=== PATIENT | male | born 1990 | race African-American/Black ===

== ENCOUNTER 2017-05-09 16:40 | Emergency (ER) | payer MEDICAID, OTHER ==
[2017-05-09] MEDS ORDERED: AZITHROMYCIN 250 MG TABLET PO ONE (17:26)
[2017-05-09] MEDS ORDERED: NYSTATIN/DEXAMETH/DIPHEN SUSP 120 ML PO ONE (17:26)
--- NOTE | 2017-05-09 17:32 | ER Document Report ---
ED ENT - General Chief Complaint: Sore Throat Stated Complaint: SORE THROAT Time Seen by Provider: 05/09/17 17:14 Mode of Arrival: Ambulatory Information source: Patient Notes: Patient is a 27-year-old male who presents to the ER today for sore throat 5 days. Patient denies any cough, runny nose but admits to "feeling hot" and chills. He has not taken his temperature. He denies any sick contacts that he knows of. He states it hurts to eat and drink. He also complains of swelling to both sides of his neck starting 2 days ago. TRAVEL OUTSIDE OF THE [place] IN LAST 30 DAYS: No - Related Data Allergies/Adverse Reactions: Penicillins Allergy (Verified 05/09/17 16:43) Past Medical History - General Information source: Patient - Social History Smoking Status: Unknown if Ever Smoked Family History: Reviewed & Not Pertinent Renal/ Medical History: Denies: Hx Peritoneal Dialysis Review of Systems - Review of Systems Constitutional: See HPI EENT: See HPI Cardiovascular: No symptoms reported Respiratory: No symptoms reported Gastrointestinal: No symptoms reported Genitourinary: No symptoms reported Male Genitourinary: No symptoms reported Musculoskeletal: No symptoms reported Skin: No symptoms reported Hematologic/Lymphatic: No symptoms reported Neurological/Psychological: No symptoms reported Physical Exam - Vital signs Vitals: Temp Pulse Resp BP Pulse Ox 99.1 F 103 H 18 136/83 H 96 05/09/17 16:44 05/09/17 16:44 05/09/17 16:44 05/09/17 16:44 05/09/17 16:44 - Notes Notes: PHYSICAL EXAMINATION: GENERAL: Mildly ill-appearing, but in no acute distress. HEAD: Atraumatic, normocephalic. EYES: Pupils equal round and reactive to light, extraocular movements intact, sclera anicteric, conjunctiva are normal. ENT: ear canals without erythema or foreign body, TMs pearly samayoa with good bony landmarks, nares patent, oropharynx erythematous with enlarged tonsils bilaterally with exudate. Moist mucous membranes. NECK: Normal range of motion, supple with cervical bilateral lymphadenopathy, tender to palpation LUNGS: CTAB and equal. No wheezes rales or rhonchi. HEART: Regular rate and rhythm without murmurs ABDOMEN: Soft, no tenderness. No guarding, no rebound EXTREMITIES: Normal range of motion, no pitting edema. No cyanosis. NEUROLOGICAL: Cranial nerves grossly intact. Normal sensory/motor exams. PSYCH: Normal mood, normal affect. SKIN: Warm, Dry, normal turgor, no rashes or lesions noted Course - Vital Signs Vital signs: Temp Pulse Resp BP Pulse Ox 99.1 F 95 20 127/82 H 100 05/09/17 18:01 05/09/17 18:01 05/09/17 18:01 05/09/17 18:01 05/09/17 18:01 Discharge - Discharge Clinical Impression: Strep pharyngitis Condition: Stable Disposition: HOME, SELF-CARE Instructions: Strep Throat ([facility]) Additional Instructions: Return immediately for any new or worsening symptoms. Follow up with primary care provider, call tomorrow to make followup appointment. Prescriptions: Azithromycin [Zithromax 250 mg Tablet] 250 mg PO ASDIR PRN #6 tablet PRN Reason: Nystatin/Dexameth/Diphen [Magic Mouthwash ([facility] Formula) Susp] 5 ml PO QID #120 ml Forms: Return to School
[2017-05-09 18:03] VITALS: BP 127/82
== END 2017-05-09 17:57 | disposition home or self-care (01) ==
LOC: ER 16:40
DX: J02.0 Streptococcal pharyngitis (principal); Z88.0 Allergy status to penicillin
CPT/HCPCS: 99283; J3490

== ENCOUNTER 2017-05-12 10:47 | Emergency (ER) | payer SELFPAY ==
[2017-05-12 10:58] VITALS: BP 138/96
--- NOTE | 2017-05-12 11:23 | ER Document Report ---
ED General - General Chief Complaint: Nausea/Vomiting Stated Complaint: SORE THROAT Time Seen by Provider: 05/12/17 11:19 Mode of Arrival: Ambulatory Information source: Patient Notes: Patient was seen here approximately 3 days ago. He was diagnosed with streptococcal pharyngitis. He states he is allergic to penicillin so he was prescribed azithromycin. He feels that the azithromycin is too strong. He states that his throat definitely feels better and he does not have fevers. He states the pain in his throat is also better. However he states he has had some nausea and vomiting as well as some constipation. He states constipation is the main problem. Patient's symptoms have been intermittent. They have been moderate. They seem to be worse with taking the antibiotic and better when he does not. There is no known radiation of the symptoms. TRAVEL OUTSIDE OF THE [place] IN LAST 30 DAYS: No - Related Data Allergies/Adverse Reactions: Penicillins Allergy (Verified 05/12/17 10:58) Past Medical History - General Information source: Patient - Social History Smoking Status: Current Every Day Smoker Frequency of alcohol use: Occasional Drug Abuse: None Family History: Reviewed & Not Pertinent Renal/ Medical History: Denies: Hx Peritoneal Dialysis Review of Systems - Review of Systems Constitutional: Malaise, Weakness Respiratory: denies: Hemoptysis, Short of breath Gastrointestinal: Constipation Skin: denies: Lumps, Rash Physical Exam - Vital signs Vitals: Temp Pulse Resp BP Pulse Ox 98.0 F 97 18 138/96 H 95 05/12/17 10:55 05/12/17 10:55 05/12/17 10:55 05/12/17 10:55 05/12/17 10:55 Interpretation: Hypertensive - General General appearance: Appears well, Alert - HEENT Head: Normocephalic Eyes: Normal Conjunctiva: Normal Mouth/Lips: Normal Mucous membranes: Moist Pharynx: Erythema, Exudate - Exudate on left tonsil - Respiratory Respiratory status: No respiratory distress Chest status: Nontender Breath sounds: Normal Chest palpation: Normal - Cardiovascular Rhythm: Regular Heart sounds: Normal auscultation Murmur: No - Psychological Associated symptoms: Normal affect, Normal mood - Skin Skin Temperature: Warm Skin Moisture: Dry Skin Color: Normal Course - Vital Signs Vital signs: Temp Pulse Resp BP Pulse Ox 98.0 F 97 18 138/96 H 95 05/12/17 10:55 05/12/17 10:55 05/12/17 10:55 05/12/17 10:55 05/12/17 10:55 Discharge - Discharge Clinical Impression: Constipation Condition: Stable Disposition: HOME, SELF-CARE Instructions: Constipation ([facility]) Additional Instructions: Follow-up with your primary care physician within 1 week. Prescriptions: Peg 3350/Na Sulf,Bicarb,Cl/KCl [Golytely Solution 4000 ml] 4,000 ml PO DAILY #1 bottle Referrals: KENDALL FLOYD MD [ACTIVE STAFF] - Follow up as needed
== END 2017-05-12 11:28 | disposition home or self-care (01) ==
LOC: ER 10:47
DX: K59.00 Constipation, unspecified (principal); J02.0 Streptococcal pharyngitis; R53.81 Other malaise; R53.1 Weakness; F17.200 Nicotine dependence, unspecified, uncomplicated; Z88.0 Allergy status to penicillin
CPT/HCPCS: 99282